=== PATIENT | male | born 1935 | race Caucasian/White ===

== ENCOUNTER → 2016-03-30 | Outpatient (CLI) | payer OTHER, MEDICARE ==
[~2016-03-30] MED LIST: ATOR-22 PO; FLM4 PO; HYD10 PO; HYDR20TA PO; LEVO88TA PO; MULT-506 PO
--- NOTE | 2016-03-30 15:38 | DIAGNOSTIC IMAGING REPORT ---
RIGHT SHOULDER 3 VIEWS CLINICAL HISTORY: Right shoulder pain. Rotator cuff tendinitis. FINDINGS: 3 views of the right shoulder are compared to study dated 12/09/2015. The skeletal structures are osteopenic. No fracture or dislocation is seen. Productive degenerative changes identified at the acromio clavicular joint. There is mild superior subluxation of the humeral head with loss of the subacromial space suggesting chronic rotator cuff injury. Arthritic change is present in the humeral head. The overlying soft tissues are within normal limits. Partially imaged right lung parenchyma appears clear. IMPRESSION: Osteopenia and degenerative change as above. No acute bony abnormality is identified. Electronically signed by: Lukas Payton M.D. 03/30/2016 3:37 PM Dictated Date/Time: 03/30/2016 3:35 PM
== END | disposition home or self-care (01) ==
LOC: C.RDSM 08:00
PROVIDERS: ATTEND Physical Medicine & Rehabilitation Sports Medicine
DX: M75.81 Other shoulder lesions, right shoulder (principal); M85.80 Other specified disorders of bone density and structure, unspecified site

== ENCOUNTER → 2016-06-07 | Outpatient (CLI) | payer OTHER, MEDICARE ==
[2016-06-07 11:57] LABS: ESTIMATED AVERAGE GLUCOSE 117 mg/dl; HA1C FLAG Normal (Normal)
--- NOTE | 2016-06-12 09:54 | CODING QUERY MEDICAL NECESSITY ---
SUPPORTING DIAGNOSIS NEEDED Dr. Menjivar, A supporting diagnosis is required for the test/procedure performed on this patient in order for us to be reimbursed by the patient's insurance. Please provide a supporting diagnosis for the following test/procedure listed below next to the test name along with your signature. *If there is no additional diagnosis for this patient that would support the following test/procedure please document that below next to the test/procedure. Test(s)/Procedure(s) that require a supporting diagnosis: * 12051 GLYCATED HEMOGLOBIN DIAGNOSIS: DATE OF SERVICE: 06/07/16 Provider Signature: Date: Thank you Danis Tolbert [facility] Information Management Once completed, please kindly fax back to [phone] For questions please call [phone]
== END | disposition home or self-care (01) ==
LOC: C.LABBC 07:51
PROVIDERS: ATTEND Internal Medicine
DX: M25.511 Pain in right shoulder (principal); Z13.1 Encounter for screening for diabetes mellitus

== ENCOUNTER → 2016-09-06 | Outpatient (CLI) | payer OTHER, MEDICARE ==
--- NOTE | 2016-09-06 11:21 | DIAGNOSTIC IMAGING REPORT ---
MRI right shoulder RIGHT UPPER EXT JOINT WITHOUT CLINICAL HISTORY: OTHER SHOULDER LESIONS, RIGHT SHOULDER Right TECHNIQUE: MRI multi axial acquisition COMPARISON STUDY: None FINDINGS: Considerable degenerative change of all major structures of the right shoulder. Joint effusion. Superior migration of the humeral head which is in close apposition to the acromion. Chronic full-thickness rotator cuff tear involving the supraspinatus musculotendinous complex. Moderate atrophy of the supraspinatus muscle. Musculotendinous retraction is estimated approximate 4 cm. Moderate tendinopathy of the infraspinatus tendon. Small partial thickness tear subscapularis tendon. Moderate degenerative substance change of the glenoid labrum. Linear intrasubstance tear of the superior bicipital tendon. IMPRESSION: 1. 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 2. Superior migration humeral head which is in close approximation to the acromion. 3. Supraspinatus musculotendinous retraction of 4 cm. 4. Tendinopathy of the infraspinatus. 5. Partial thickness tear subscapularis. 6. Joint effusion. 7. Linear split/tear superior biceps tendon Electronically signed by: Fernando Brown M.D. 09/06/2016 11:19 AM Dictated Date/Time: 09/06/2016 11:14 AM
== END | disposition home or self-care (01) ==
LOC: C.MRI 09:43
PROVIDERS: ATTEND Physical Medicine & Rehabilitation Sports Medicine
DX: M75.81 Other shoulder lesions, right shoulder (principal); S46.011A Strain of muscle(s) and tendon(s) of the rotator cuff of right shoulder, initial encounter; X58.XXXA Exposure to other specified factors, initial encounter; M25.411 Effusion, right shoulder; M66.821 Spontaneous rupture of other tendons, right upper arm

== ENCOUNTER → 2016-09-07 | Outpatient (CLI) | payer OTHER, MEDICARE ==
[2016-09-07 10:54] LABS: BASO % 0.8 %; BASO ABS # 0.05 K/uL (0-0.2); COMPLETE YES; EOS % 1.5 %; HEMATOCRIT 45.3 % (42-52); IG% 0.8 %; LYMPH % 35.4 %; LYMPH ABS # 2.32 K/uL (1.2-3.4); MEAN CELL VOLUME 95.8 fL (80-100); MEAN CORPUSCULAR HEMOGLOBIN 31.1 pg (25-34); MEAN CORPUSCULAR HGB CONC 32.5 g/dl (32-36); MEAN PLATELET VOLUME 10.2 fL (7.4-10.4); MONO % 11.6 %; NEUT % 49.9 %; PLATELET COUNT 205 K/uL (130-400); RED BLOOD COUNT 4.73 M/uL (4.7-6.1); WHITE BLOOD COUNT 6.56 K/uL (4.8-10.8)
[2016-09-07 11:05] LABS: ALT/SGPT 22 U/L (12-78); AST/SGOT 11 U/L (15-37); BLOOD UREA NITROGEN 22 mg/dl (7-18); BUN/CREATININE RATIO 24.4 (10-20); CARBON DIOXIDE 31 mmol/L (21-32); CHLORIDE 103 mmol/L (98-107); CREATININE 0.89 mg/dl (0.60-1.40); GLUCOSE 93 mg/dl (70-99); POTASSIUM 3.6 mmol/L (3.5-5.1); SODIUM 142 mmol/L (136-145)
[2016-09-07 11:08] LABS: CHOLESTEROL 156 mg/dl (0-200); HDL CHOLESTEROL 52 mg/dl; LDL CHOLESTEROL CALCULATED 79 mg/dl; TRIGLYCERIDES 125 mg/dl (0-150); VERY LOW DENSITY LIPOPROT CALC 25 mg/dl
[2016-09-07 12:05] LABS: ESTIMATED AVERAGE GLUCOSE 123 mg/dl; HA1C FLAG Normal (Normal)
--- NOTE | 2016-09-14 08:43 | CODING QUERY MEDICAL NECESSITY ---
SUPPORTING DIAGNOSIS NEEDED Dr. Menjivar, A supporting diagnosis is required for the test/procedure performed on this patient in order for us to be reimbursed by the patient's insurance. Please provide a supporting diagnosis for the following test/procedure listed below next to the test name along with your signature. *If there is no additional diagnosis for this patient that would support the following test/procedure please document that below next to the test/procedure. Test(s)/Procedure(s) that require a supporting diagnosis: * 98321 GLYCATED HEMOGLOBIN DIAGNOSIS: DATE OF SERVICE: 09/07/16 Provider Signature: Date: Thank you Danis Tolbert [facility] Information Management Once completed, please kindly fax back to [phone] For questions please call [phone]
== END | disposition home or self-care (01) ==
LOC: C.LABBC 07:32
PROVIDERS: ATTEND Internal Medicine
DX: E23.0 Hypopituitarism (principal); R73.9 Hyperglycemia, unspecified

== ENCOUNTER → 2016-11-26 | Outpatient (CLI) | payer OTHER, MEDICARE | END | disposition home or self-care (01) | LOC: C.RDSM 08:53 | PROVIDERS: ATTEND Physical Medicine & Rehabilitation Sports Medicine | DX: M25.561 Pain in right knee (principal); Z96.651 Presence of right artificial knee joint ==

== ENCOUNTER → 2016-12-20 | Outpatient (CLI) | payer OTHER, MEDICARE | END | disposition home or self-care (01) | LOC: C.LABBC 09:28 | PROVIDERS: ATTEND Urology | DX: C61 Malignant neoplasm of prostate (principal) ==

== ENCOUNTER → 2017-01-31 | Outpatient (CLI) | payer OTHER, MEDICARE ==
--- NOTE | 2017-01-31 09:22 | DIAGNOSTIC IMAGING REPORT ---
L SHOULDER MIN 2 VIEWS CLINICAL HISTORY: 81 years-old Male presenting with LEFT SHOULDER PAIN. TECHNIQUE: External rotation, transscapular Y, and axillary views of the left shoulder were obtained. COMPARISON: None. FINDINGS: Are slightly visualized implanted cardiac device projects over the left upper thorax. The left humeral head is not subluxed. Osteophytosis of the glenoid noted. No acute fracture or malalignment. Small ossific fragment near the rotator cuff footplate may represent calcific tendinitis. Degenerative changes of the acromioclavicular joint. IMPRESSION: 1. Mild degenerative changes of the glenohumeral joint. 2. Degenerative changes of the acromioclavicular joint. 3. Suggestion of calcific tendinitis of the rotator cuff. Electronically signed by: Jordan Espinoza M.D. 01/31/2017 9:21 AM Dictated Date/Time: 01/31/2017 9:19 AM
== END | disposition home or self-care (01) ==
LOC: C.RDSM 15:36
PROVIDERS: ATTEND Physician Assistant
DX: M25.512 Pain in left shoulder (principal)

== ENCOUNTER → 2017-06-05 | Outpatient (CLI) | payer OTHER, MEDICARE ==
--- NOTE | 2017-06-05 09:02 | DIAGNOSTIC IMAGING REPORT ---
CT POST ARTHROGRAM OF THE LEFT SHOULDER. CT DOSE: 369.57 mGy.cm CLINICAL HISTORY: LEFT SHOULDER IMPINGEMENT TECHNIQUE: Following a diagnostic left shoulder arthrogram, CT scanning is performed in a helical fashion in the axial plane. Coronal and sagittal reformatted images were acquired. A dose lowering technique was utilized adhering to the principles of ALARA. COMPARISON STUDY: None. FINDINGS: There is contrast within the subacromial bursa. There is a full-thickness supraspinatus tear with 1 cm of maximal tenderness retraction. There are moderately advanced arthritic changes within the acromioclavicular joint with inferior hypertrophic spurring. There is a tear of the anterior and posterior glenoid labrum superiorly. Abdomen note is made of a pacemaker. There is very subtle subpleural reticulation within the visualized portions of the left upper lobe. IMPRESSION: 1. Full-thickness supraspinatus tear with 1 cm of maximal tenderness retraction 2. SLAP tear 3. Arthritic changes within the acromioclavicular joint. Electronically signed by: Rob Gamez M.D. 06/05/2017 9:01 AM Dictated Date/Time: 06/05/2017 8:54 AM
--- NOTE | 2017-06-05 09:04 | DIAGNOSTIC IMAGING REPORT ---
FLUOROSCOPICALLY GUIDED LEFT SHOULDER ARTHROGRAM CLINICAL HISTORY: LEFT SHOULDER IMPINGEMENT pain COMPARISON STUDY: Conventional radiographic study dated 01/31/2017 FLUOROSCOPY TIME: 24 seconds. NUMBER OF FLUOROSCOPIC IMAGES: 1 FINDINGS: A timeout was performed. The risks the procedure were explained the patient informed consent was obtained. The patient was prepped and draped in sterile fashion. The skin was anesthetized 1% lidocaine. Under fluoroscopic guidance, a 20-gauge spinal needle was introduced into the joint space. 8 cc of Optiray 320 was instilled into the shoulder joint. Intrathecal location was documented with a fluoroscopic spot image. The patient to our the procedure well. The patient was sent to the CT suite for further imaging. IMPRESSION: Successful fluoroscopically guided left shoulder arthrogram preceding a CT scan. Electronically signed by: Rob Gamez M.D. 06/05/2017 9:02 AM Dictated Date/Time: 06/05/2017 9:01 AM
== END | disposition home or self-care (01) ==
LOC: C.RAD 08:15
PROVIDERS: ATTEND Physical Medicine & Rehabilitation Sports Medicine
DX: M75.42 Impingement syndrome of left shoulder (principal); M75.102 Unspecified rotator cuff tear or rupture of left shoulder, not specified as traumatic

== ENCOUNTER → 2017-10-14 | Outpatient (CLI) | payer OTHER, MEDICARE ==
[~2017-10-14] MED LIST changes: +APIX1TAB3 PO; +DIGO0.1219 PO; +DILT-119 PO; -FLM4 PO; -HYDR20TA PO; +LEVO75TA PO; -LEVO88TA PO; +LZL125 PO; -MULT-506 PO; +MULTTAB5 PO; +TAMS0.4C38 PO
== END | disposition home or self-care (01) ==
LOC: C.RDSM 10:15
PROVIDERS: ATTEND Physical Medicine & Rehabilitation Sports Medicine
DX: S46.012A Strain of muscle(s) and tendon(s) of the rotator cuff of left shoulder, initial encounter (principal); X58.XXXA Exposure to other specified factors, initial encounter